=== PATIENT | male | born 1945 | race Caucasian/White ===

== ENCOUNTER 2017-12-13 06:38 | Emergency (ER) | payer MEDICARE, BC ==
[2017-12-13] MEDS ORDERED: SODIUM CHLORIDE 0.9% 1,000 ML IV STA (07:21)
[2017-12-13] MEDS ORDERED: ONDANSETRON 4 MG/2 ML VIAL IVP STA (07:21)
--- NOTE | 2017-12-13 07:24 | ED ---
Abdominal Pain HPI - General Chief Complaint: Abdominal Pain Stated Complaint: abdominal pain Time Seen by Provider: 12/13/17 07:00 Source: patient, RN notes reviewed Mode of arrival: ambulatory Limitations: no limitations - History of Present Illness Initial Comments: This is a 72-year-old male who presents with complaints of the onset last evening of mid epigastric pain that radiates down to his navel moderate in severity is unable to say whether sharp dull achy. He had 3 episodes nausea vomiting with it no fevers chills or sweats is been pretty constant all night he states. He has small bowel movement last evening no dysuria hematuria no prior history of any surgeries on his abdomen. No other modifying factors at this time MD Complaint: abdominal pain - Related Data Home Medications Medication Instructions Recorded Confirmed Aspirin EC [Ecotrin Low Dose] 81 mg PO HS 12/13/17 12/13/17 Bimatoprost [Lumigan .01% Ophth 1 drop LEFT EYE HS 12/13/17 12/13/17 Soln] Dorzolamide-Timolol 2%/0.5% 1 drop LEFT EYE BID 12/13/17 12/13/17 [dorzolamide-Timolol 2%/0.5%] Pravastatin Sodium [Pravachol] 40 mg PO HS 12/13/17 12/13/17 Previous Rx's Medication Instructions Recorded Famotidine [Pepcid] 20 mg PO DAILY #14 tablet 12/13/17 Allergies Allergy/AdvReac Type Severity Reaction Status Date / Time No Known Allergies Allergy Verified 12/13/17 11:45 Review of Systems ROS Statement: Those systems with pertinent positive or pertinent negative responses have been documented in the HPI. ROS Other: All systems not noted in ROS Statement are negative. Past Medical History Past Medical History: Hyperlipidemia Additional Past Medical History / Comment(s): glaucoma History of Any Multi-Drug Resistant Organisms: None Reported Additional Past Surgical History / Comment(s): eye surgery Past Psychological History: No Psychological Hx Reported Smoking Status: Never smoker Past Alcohol Use History: None Reported Past Drug Use History: None Reported General Exam - General Exam Comments Initial Comments: This a well-developed well-nourished awake alert oriented times 3 male Limitations: no limitations General appearance: alert, in no apparent distress Head exam: Present: atraumatic, normocephalic, normal inspection Eye exam: Present: normal appearance, PERRL, EOMI. Absent: scleral icterus, conjunctival injection, periorbital swelling ENT exam: Present: normal exam, mucous membranes moist Neck exam: Present: normal inspection. Absent: tenderness, meningismus, lymphadenopathy Respiratory exam: Present: normal lung sounds bilaterally. Absent: respiratory distress, wheezes, rales, rhonchi, stridor Cardiovascular Exam: Present: regular rate, normal rhythm, normal heart sounds. Absent: systolic murmur, diastolic murmur, rubs, gallop, clicks GI/Abdominal exam: Present: soft, tenderness (Out epigastric and midabdominal pain no definite guarding rebound masses or bruits), normal bowel sounds. Absent: distended, guarding, rebound, rigid, bruit, pulsatile mass, hernia Rectal exam: Present: deferred Extremities exam: Present: normal inspection, full ROM, normal capillary refill. Absent: tenderness, pedal edema, joint swelling, calf tenderness Back exam: Present: normal inspection Neurological exam: Present: alert, oriented X3, CN II-XII intact Psychiatric exam: Present: normal affect, normal mood Skin exam: Present: warm, dry, intact, normal color. Absent: rash Course Vital Signs 12/13/17 12/13/17 12/13/17 06:40 10:03 11:34 Temperature 97.4 F L Pulse Rate 59 L 63 62 Respiratory 20 18 18 Rate Blood Pressure 193/82 149/67 144/65 O2 Sat by Pulse 98 99 99 Oximetry Medical Decision Making - Medical Decision Making The patient is feeling improved I will discharge him he'll be following up with Dr. Rush. We placed on a short course of histamine 2 blockers - Lab Data Result diagrams: 12/13/17 07:25 12/13/17 07:25 Lab Results 12/13/17 12/13/17 12/13/17 Range/Units 07:25 07:25 07:25 WBC 12.7 H (3.8-10.6) k/uL RBC 5.15 (4.30-5.90) m/uL Hgb 14.9 (13.0-17.5) gm/dL Hct 45.4 (39.0-53.0) % MCV 88.2 (80.0-100.0) fL MCH 28.9 (25.0-35.0) pg MCHC 32.8 (31.0-37.0) g/dL RDW 13.1 (11.5-15.5) % Plt Count 224 (150-450) k/uL Neutrophils % 86 % Lymphocytes % 10 % Monocytes % 3 % Eosinophils % 1 % Basophils % 0 % Neutrophils # 11.0 H (1.3-7.7) k/uL Lymphocytes # 1.2 (1.0-4.8) k/uL Monocytes # 0.3 (0-1.0) k/uL Eosinophils # 0.1 (0-0.7) k/uL Basophils # 0.0 (0-0.2) k/uL PT (9.0-12.0) sec INR (<1.2) APTT (22.0-30.0) sec Sodium 144 (137-145) mmol/L Potassium 4.8 (3.5-5.1) mmol/L Chloride 103 (98-107) mmol/L Carbon Dioxide 28 (22-30) mmol/L Anion Gap 13 mmol/L BUN 14 (9-20) mg/dL Creatinine 0.84 (0.66-1.25) mg/dL Est GFR (CKD-EPI)AfAm >90 (>60 ml/min/1.73 sqM) Est GFR (CKD-EPI)NonAf 87 (>60 ml/min/1.73 sqM) Glucose 138 H (74-99) mg/dL Plasma Lactic Acid Moises (0.7-2.0) mmol/L Calcium 9.4 (8.4-10.2) mg/dL Total Bilirubin 0.8 (0.2-1.3) mg/dL AST 24 (17-59) U/L ALT 30 (21-72) U/L Alkaline Phosphatase 83 (38-126) U/L Total Creatine Kinase 59 (55-170) U/L CK-MB (CK-2) 0.6 (0.0-2.4) ng/mL CK-MB (CK-2) Rel Index 1.0 Troponin I <0.012 (0.000-0.034) ng/mL Total Protein 7.4 (6.3-8.2) g/dL Albumin 4.3 (3.5-5.0) g/dL Amylase 68 (30-110) U/L Lipase 63 (23-300) U/L Urine Color Urine Appearance (Clear) Urine pH (5.0-8.0) Ur Specific [place] (1.001-1.035) Urine Protein (Negative) Urine Glucose (UA) (Negative) Urine Ketones (Negative) Urine Blood (Negative) Urine Nitrite (Negative) Urine Bilirubin (Negative) Urine Urobilinogen (<2.0) mg/dL Ur Leukocyte Esterase (Negative) Amorphous Sediment (None) /hpf Urine Mucus (None) /hpf 12/13/17 12/13/17 12/13/17 Range/Units 07:25 07:25 08:10 WBC (3.8-10.6) k/uL RBC (4.30-5.90) m/uL Hgb (13.0-17.5) gm/dL Hct (39.0-53.0) % MCV (80.0-100.0) fL MCH (25.0-35.0) pg MCHC (31.0-37.0) g/dL RDW (11.5-15.5) % Plt Count (150-450) k/uL Neutrophils % % Lymphocytes % % Monocytes % % Eosinophils % % Basophils % % Neutrophils # (1.3-7.7) k/uL Lymphocytes # (1.0-4.8) k/uL Monocytes # (0-1.0) k/uL Eosinophils # (0-0.7) k/uL Basophils # (0-0.2) k/uL PT 10.1 (9.0-12.0) sec INR 1.0 (<1.2) APTT 23.3 (22.0-30.0) sec Sodium (137-145) mmol/L Potassium (3.5-5.1) mmol/L Chloride (98-107) mmol/L Carbon Dioxide (22-30) mmol/L Anion Gap mmol/L BUN (9-20) mg/dL Creatinine (0.66-1.25) mg/dL Est GFR (CKD-EPI)AfAm (>60 ml/min/1.73 sqM) Est GFR (CKD-EPI)NonAf (>60 ml/min/1.73 sqM) Glucose (74-99) mg/dL Plasma Lactic Acid Moises 1.4 (0.7-2.0) mmol/L Calcium (8.4-10.2) mg/dL Total Bilirubin (0.2-1.3) mg/dL AST (17-59) U/L ALT (21-72) U/L Alkaline Phosphatase (38-126) U/L Total Creatine Kinase (55-170) U/L CK-MB (CK-2) (0.0-2.4) ng/mL CK-MB (CK-2) Rel Index Troponin I (0.000-0.034) ng/mL Total Protein (6.3-8.2) g/dL Albumin (3.5-5.0) g/dL Amylase (30-110) U/L Lipase (23-300) U/L Urine Color Yellow Urine Appearance Turbid (Clear) Urine pH 8.0 (5.0-8.0) Ur Specific [place] 1.016 (1.001-1.035) Urine Protein Negative (Negative) Urine Glucose (UA) Negative (Negative) Urine Ketones 1+ H (Negative) Urine Blood Trace H (Negative) Urine Nitrite Negative (Negative) Urine Bilirubin Negative (Negative) Urine Urobilinogen 2.0 (<2.0) mg/dL Ur Leukocyte Esterase Negative (Negative) Amorphous Sediment Few H (None) /hpf Urine Mucus Few H (None) /hpf - Radiology Data Radiology results: report reviewed (I did review the imaging and reports no definite acute findings or is evidence of right upper quadrant inflammatory changes the ultrasound was negative changes are felt to be secondary to peptic etiology.), image reviewed Disposition Clinical Impression: Acute abdomen, Dyspepsia Disposition: HOME SELF-CARE Condition: Good Instructions: Abdominal Pain (ED), Peptic Ulcer (ED) Prescriptions: Famotidine [Pepcid] 20 mg PO DAILY #14 tablet Is patient prescribed a controlled substance at d/c from ED?: No Referrals: Bharat Rush MD [Primary Care Provider] - 1-2 days
[2017-12-13 07:40] LABS: Basophils % (A) 0 %; Eosinophils # (A) 0.1 k/uL (0-0.7); Eosinophils % (A) 1 %; HCT 45.4 % (39.0-53.0); HGB 14.9 gm/dL (13.0-17.5); Lymphocytes # (A) 1.2 k/uL (1.0-4.8); Lymphocytes % (A) 10 %; MCH 28.9 pg (25.0-35.0); MCHC 32.8 g/dL (31.0-37.0); MCV 88.2 fL (80.0-100.0); Mean Platelet Volume 7.3; Monocytes # (A) 0.3 k/uL (0-1.0); Monocytes % (A) 3 %; Neutrophils % (A) 86 %; Platelet Count 224 k/uL (150-450); RBC 5.15 m/uL (4.30-5.90); RDW 13.1 % (11.5-15.5); WBC 12.7 k/uL (3.8-10.6)
[2017-12-13 07:49] LABS: ALT 30 U/L (21-72); AST 24 U/L (17-59); Albumin 4.3 g/dL (3.5-5.0); Alkaline Phosphatase 83 U/L (38-126); Amylase 68 U/L (30-110); Anion Gap 13 mmol/L; Blood Urea Nitrogen 14 mg/dL (9-20); Calcium 9.4 mg/dL (8.4-10.2); Carbon Dioxide 28 mmol/L (22-30); Chloride 103 mmol/L (98-107); Glucose 138 mg/dL (74-99); Lipase 63 U/L (23-300); Potassium 4.8 mmol/L (3.5-5.1); Sodium 144 mmol/L (137-145); Total Bilirubin 0.8 mg/dL (0.2-1.3); Total Protein 7.4 g/dL (6.3-8.2)
[2017-12-13 07:51] LABS: Partial Thromboplastin Time 23.3 sec (22.0-30.0); Prothrombin Time 10.1 sec (9.0-12.0)
--- NOTE | 2017-12-13 07:56 | XR ---
EXAMINATION: XR chest 2V DATE AND TIME: 12/13/2017 7:50 AM ORDERING PROVIDER: Marco Antonio Huerta MD CLINICAL INDICATION: abdominal pain TECHNIQUE: PA and lateral COMPARISON: None. DESCRIPTION: The lungs are clear and well expanded. The pleural spaces are negative for acute findings, but there is chronic biapical pleural thickening, greater on the right with the overlying ribs intact. The cardiac silhouette is not enlarged. The mediastinal and pleural silhouettes are unremarkable. The skeletal structures are intact without focal findings. The soft tissues are unremarkable. IMPRESSION: NO ACUTE PROCESS.
[2017-12-13 08:01] LABS: Creatine Kinase 59 U/L (55-170)
--- NOTE | 2017-12-13 08:02 | XR ---
EXAMINATION TYPE: XR KUB 2 views DATE OF EXAM: 12/13/2017 COMPARISON: NONE HISTORY: Abdominal pain with nausea and vomiting for 8 hours TECHNIQUE: 2 upright views to include the abdomen and pelvis FINDINGS: The visualized lung bases and pleural spaces are negative. There is no pneumoperitoneum; no pneumatosis. There is excessive colonic stool noted particularly in the ascending and transverse colon. The stomach is fluid distended, but not dilated. In the bilateral upper quadrants there are peripheral gas distended loops of small bowel, one of which is mildly dila yasemin at just over 3 cm caliber. The soft tissues and skeletal structures of the abdomen and pelvis are negative for acute findings. IMPRESSION: 1. Excessive colonic stool. 2. Mildly prominent epigastric small bowel loops.
[2017-12-13 08:14] LABS: Creatine Kinase MB 0.6 ng/mL (0.0-2.4); Troponin I <0.012 ng/mL (0.000-0.034)
[2017-12-13 08:43] LABS: Amorphous Sediment,Urine Few /hpf; Appearance,Urine Turbid (Clear); Bilirubin,Urine Negative (Negative); Blood,Urine Trace (Negative); Color,Urine Yellow; Glucose,Urine (UA) Negative (Negative); Ketones,Urine 1+ (Negative); Leukocyte Esterase,Urine Negative (Negative); Mucus,Urine Few /hpf; Nitrite,Urine Negative (Negative); Protein,Urine Negative (Negative); Specific Gravity,Urine 1.016 (1.001-1.035)
--- NOTE | 2017-12-13 09:41 | CT ---
EXAMINATION TYPE: CT abdomen pelvis w con DATE OF EXAM: 12/13/2017 COMPARISON: NONE HISTORY: Generalized pain, constipation, nausea and vomiting CT DLP: 802.3 mGycm Automated exposure control for dose reduction was used. TECHNIQUE: Helical acquisition of images was performed from the lung bases through the pelvis. CONTRAST: Performed without Oral Contrast and with IV Contrast, patient injected with 100 mL of Isovue 300. FINDINGS: VISUALIZED LOWER CHEST: Coronary calcifications noted. Visualized lung bases and pleural spaces are n egative. LIVER: No significant liver abnormality is appreciated. BILIARY TREE: There is mild indistinctness of the margins of the gallbladder and the proximal duodenu m, with mild thickening of the adjacent anterior renal fascia. There is apparent mild gallbladder dis tention and a calcified 3 mm cholelith in the expected position of the cystic duct. The intrahepatic biliary tree is not dilated, the extrahepatic biliary ductal anatomy is not dilated. PANCREAS: No significant abnormality is seen. SPLEEN: No significant abnormality is seen. ADRENALS: No significant abnormality is seen. KIDNEYS: No significant abnormality is seen. PERITONEAL CAVITY: No pneumoperitoneum or fluid. ABDOMINAL ADENOPATHY: None visualized REPRODUCTIVE ORGANS: No significant abnormality is seen URINARY BLADDER: No significant abnormality is seen. PELVIC ADENOPATHY: None visualized. OSSEOUS STRUCTURES: No significant abnormality is seen. BOWEL: Other than the proximal duodenal indistinctness, the bowel is unremarkable. VASCULATURE: Unremarkable. IMPRESSION: Right upper quadrant mild inflammatory changes with differential including cholecystitis versus pepti c ulcer disease. Would recommend gallbladder ultrasound evaluation to include power Doppler assessmen t of the gallbladder wall.
[2017-12-13 10:04] VITALS: RESP 18
--- NOTE | 2017-12-13 11:32 | US ---
EXAMINATION TYPE: US gallbladder DATE OF EXAM: 12/13/2017 COMPARISON: NONE CLINICAL HISTORY: Pain. TECHNIQUE: High-resolution multiplanar delaney scale sonographic imaging was obtained, with use of power Doppler and color Doppler. EXAM MEASUREMENTS: Liver Length: 14.7 cm Gallbladder Wall: 0.24 cm CBD: 0.5 cm Right Kidney: 10.8 x 5.2 x 4.8 cm Pancreas: Obscured by bowel gas, visualized portions wnl Liver: Echogenic foci left lobe measuring 1.0 cm Gallbladder: Unable to visualize the hyperdense cholelith seen on CT today - but the cystic duct is v isualized as a serpentine anechoic structure. Its distal most aspect cannot be visualized. No gallbla dder wall thickening visualized. Evidence for sonographic Brewster's sign: No. CBD: wnl as visualized, distal portion is obscured by bowel gas Right Kidney: No hydronephrosis. Non-obstructing echogenic foci visualized mid pole measuring 0.45 c m IMPRESSION: Since there is no sonographic evidence for cholecystitis, thought the cystic duct is visualized, the mild right upper quadrant inflammatory change seen on CT is presumably related to peptic ulcer diseas e.
[2017-12-13] MEDS ORDERED: FAMOTIDINE 20 MG TAB PO STA (12:21)
[2017-12-13 12:26] VITALS: BP 142/87; PULSE 87; TEMP 98.4
== END 2017-12-13 12:26 | disposition home or self-care (01) ==
LOC: EC 06:38
DX: R10.13 Epigastric pain (principal); R11.2 Nausea with vomiting, unspecified; R10.33 Periumbilical pain; E78.5 Hyperlipidemia, unspecified; H40.9 Unspecified glaucoma; Z79.82 Long term (current) use of aspirin; Z79.899 Other long term (current) drug therapy
CPT/HCPCS: 36415; 80053; 82150; 82550; 82553; 83605; 83690; 84484; 85025; 85610; 85730; 81001; 71046; 74018; 76705; 74177; 99284; 96374; 96361 ×5; J2405; Q9967

== ENCOUNTER → 2018-05-12 | Outpatient (CLI) | payer MEDICARE, BC ==
--- NOTE | 2018-05-12 10:49 | US ---
EXAMINATION TYPE: US abdomen limited DATE OF EXAM: 05/12/2018 COMPARISON: 12/13/2017 CLINICAL HISTORY: R10.11Right upper quadrant pain. RUQ pain, NPO EXAM MEASUREMENTS: Liver Length: 14.6 cm Gallbladder Wall: 0.2 cm CBD: 0.3 cm CHD: 0.3 cm Right Kidney: 10.3 x 5.1 x 5.9 cm Pancreas: wnl Liver: left lobe echogenic focus with shadow - 0.6 x 0.8 cm Gallbladder: wnl Evidence for sonographic Brewster's sign: neg CBD: wnl CHD: wnl Right Kidney: wnl IMPRESSION: 1. Hepatic calcification. Otherwise unremarkable study.
== END | disposition home or self-care (01) ==
LOC: RADUSWWP 10:07
PROVIDERS: ATTEND Internal Medicine
DX: K80.50 Calculus of bile duct without cholangitis or cholecystitis without obstruction (principal)
CPT/HCPCS: 76705

== ENCOUNTER → 2024-12-17 | Outpatient (CLI) | payer MEDICARE, BC ==
[2024-12-17 13:15] LABS: Basophils # (A) 0.04 X 10*3/uL (0.00-0.10); Basophils % (A) 0.5 %; Eosinophils # (A) 0.29 X 10*3/uL (0.04-0.35); Eosinophils % (A) 3.6 %; HCT 44.4 % (39.6-50.0); HGB 14.3 g/dL (13.0-17.0); Lymphocytes # (A) 1.44 X 10*3/uL (0.90-5.00); Lymphocytes % (A) 18.1 %; MCH 29.5 pg (27.0-32.0); MCHC 32.2 g/dL (32.0-37.0); MCV 91.5 FL (80.0-97.0); Mean Platelet Volume 10.6 FL (9.5-12.2); Monocytes # (A) 0.57 X 10*3/uL (0.20-1.00); Monocytes % (A) 7.2 %; NRBC Per 100 WBC 0 X 10*3/uL (0.00-0.01); Neutrophils # (A) 5.58 X 10*3/uL (1.80-7.70); Neutrophils % (A) 70.1 %; Platelet Count 232 X 10*3/uL (140-440); RBC 4.85 X 10*6/uL (4.40-5.60); RDW 13.9 % (11.5-14.5); WBC 7.96 X 10*3/uL (4.50-10.00)
[2024-12-17 13:34] LABS: ALT 17 U/L (10-49); AST 25 U/L (14-35); Albumin 4.1 g/dL (3.8-4.9); Albumin/Globulin Ratio 1.58 Ratio (1.60-3.17); Alkaline Phosphatase 92 U/L (41-126); BUN/Creat Ratio 16.44 Ratio (12.00-20.00); Blood Urea Nitrogen 14.8 mg/dL (9.0-27.0); Calcium 9.2 mg/dL (8.7-10.3); Carbon Dioxide 27.5 mmol/L (21.6-31.8); Chloride 104 mmol/L (96-109); Chol/HDL Ratio 2.94 Ratio; Globulin 2.6 g/dL (1.6-3.3); Glucose 106 mg/dL (70-110); LDL Cholesterol,Calculated 94.2 mg/dL (0.0-131.0); Magnesium 2.1 mg/dL (1.5-2.4); Sodium 142 mmol/L (135-145); Total Bilirubin 0.7 mg/dL (0.3-1.2); Total Protein 6.7 g/dL (6.2-8.2)
[2024-12-19 10:01] LABS: Angiotensin-1 Converting Enz. 22 U/L (8-52)
[2024-12-19 14:22] LABS: HLA B27 NEGATIVE
== END | disposition home or self-care (01) ==
LOC: LABWHC1 08:28
PROVIDERS: ATTEND Psychiatry & Neurology Psychiatry
DX: Z00.00 Encounter for general adult medical examination without abnormal findings (principal); Z12.5 Encounter for screening for malignant neoplasm of prostate; I10 Essential (primary) hypertension; N40.0 Benign prostatic hyperplasia without lower urinary tract symptoms; H20.00 Unspecified acute and subacute iridocyclitis
CPT/HCPCS: 86812; 80061; 80053; 84443; 82164; 83735; 85025; 86780; 86038; 86480; 36415; G0103

== ENCOUNTER → 2025-01-27 | Outpatient (CLI) | payer MEDICARE, BC ==
[2025-01-27 19:10] LABS: Hepatitis A Antibody IgM Nonreactive (Nonreactive); Hepatitis B Surface Antigen Nonreactive (Nonreactive); Hepatitis C IgG Antibody Nonreactive (Nonreactive)
== END | disposition home or self-care (01) ==
LOC: LABWHC1 11:03
PROVIDERS: ATTEND Internal Medicine
DX: H20.00 Unspecified acute and subacute iridocyclitis (principal)
CPT/HCPCS: 36415; 80074